=== PATIENT | female | born 1990 | race Caucasian/White ===

== ENCOUNTER → 2017-02-21 | Outpatient (CLI) | payer OTHER ==
--- NOTE | 2017-02-21 15:39 | US ---
EXAMINATION TYPE: US OB <= 14 wk fetus DATE OF EXAM: 02/21/2017 COMPARISON: NONE CLINICAL HISTORY: Confirm Dates Z36. EXAM PERFORMED: Transabdominal (TA) EXAM MEASUREMENTS: GESTATIONAL AGE / DATING Physician Established: not established Dates by LMP: (12 weeks/2 days) EDC: 09/03/2017 First Scan is today: Dates by Current Scan for: (11 weeks/6 days) EDC: 09/06/2017 MATERNAL ANATOMY Uterus: 11.9 x 10.4 x 6.1cm Right Ovary: 1.9 x 1.8 x 1.2cm Left Ovary: 2.8 x 1.9 x 1.9cm Post CDS / Adnexa: wnl Presence of free fluid: no Presence of corpus luteal cyst: in left ovary = 1.1 x 0.9 x 1.0cm Presence of subchorionic bleed: no GESTATION / SURVEY CRL: 5.2cm (11 weeks/6 days) Yolk Sac (normal less than 6mm): 0.4cm Heart Rate: 168 bpm Rhythm: Normal IUP: Viable IUP Nuchal Translucency 10-14wks (normal less than 3mm):1.2mm Date of LMP: 11/27/2016 Beta HcG (if available): NA Single live intrauterine gestation is seen as gestational sac, yolk sac, and pole are identifie d. No free fluid is seen in pelvic cul-de-sac. Both ovaries are seen. Within left ovary there is 1.1 cm peripheral hypoechoic hypervascular lesion f elt to reflect corpus luteal cyst. No concerning extraovarian adnexal mass are seen bilaterally. IMPRESSION: Single live intrauterine gestation is present, mean crown-rump length is 5.2 cm corresponding to 11 w eeks 6 day old fetus.
[2017-02-21 15:42] LABS: CH 30.4; CHCM 35.7; HCT 37.5 % (34.0-46.0); HDW 2.58; HGB 13.4 gm/dL (11.4-16.0); MCH 30.5 pg (25.0-35.0); MCHC 35.7 g/dL (31.0-37.0); MCV 85.5 fL (80.0-100.0); Mean Platelet Volume 7.3; RBC 4.38 m/uL (3.80-5.40); RDW 12.4 % (11.5-15.5); WBC 10.4 k/uL (3.8-10.6)
[2017-02-21 15:52] LABS: Glucose 55 mg/dL (74-99); Non-African American GFR(MDRD) >60 (>60 ml/min/1.73 sqM)
[2017-02-21 16:24] LABS: Hepatitis B Surface Ag Index 0.05
[2017-02-21 19:43] LABS: Treponemal Ab Non-Reactive (Non-Reactive)
== END | disposition home or self-care (01) ==
LOC: RADUSWWP 14:34
PROVIDERS: ATTEND Obstetrics & Gynecology
DX: Z36 Encounter for antenatal screening of mother (principal); O26.811 Pregnancy related exhaustion and fatigue, first trimester; Z3A.11 11 weeks gestation of pregnancy
CPT/HCPCS: 76801; 82565; 82947; 85027; 86762; 86780; 86850; 86900; 86901; 87340; 87390

== ENCOUNTER 2017-04-08 08:32 | Emergency (ER) | payer OTHER ==
[2017-04-08 08:45] VITALS: BP 114/78; PULSE 111; RESP 20; TEMP 98.5
--- NOTE | 2017-04-08 08:59 | ED ---
General Adult HPI - General Chief complaint: Abdominal Pain Stated complaint: Right side & back pain (19 weeks preg) Time Seen by Provider: 04/08/17 08:48 Source: patient, RN notes reviewed, old records reviewed Mode of arrival: ambulatory Limitations: no limitations - History of Present Illness Initial comments: Patient is a 27 year old female who presents to the ER today with a chief complaint of right sided flank pain that comes and goes over the last day. Patient states that at this time is currently not having any pain or symptoms. She states it has been sharp at times. She denies any other symptoms. Denies vaginal bleeding or discharge. States that she has had care. Patient denies any recent fever, chills, shortness of breath, chest pain, nausea or vomiting, numbness or tingling, dysuria or hematuria, constipation or diarrhea, headaches or visual changes, or any other complaints. - Related Data Previous Rx's Medication Instructions Recorded Nitrofurantoin Monohyd/M-Cryst 100 mg PO Q12HR #14 cap 04/08/17 [Macrobid] Allergies Allergy/AdvReac Type Severity Reaction Status Date / Time amoxicillin AdvReac Rash/Hives Verified 04/08/17 08:38 Review of Systems ROS Statement: Those systems with pertinent positive or pertinent negative responses have been documented in the HPI. ROS Other: All systems not noted in ROS Statement are negative. Past Medical History Past Medical History: No Reported History History of Any Multi-Drug Resistant Organisms: None Reported Past Surgical History: No Surgical Hx Reported Past Psychological History: No Psychological Hx Reported Smoking Status: Never smoker Past Alcohol Use History: None Reported Past Drug Use History: None Reported General Exam Limitations: no limitations General appearance: alert, in no apparent distress Head exam: Present: atraumatic, normocephalic, normal inspection Eye exam: Present: normal appearance, PERRL, EOMI. Absent: scleral icterus, conjunctival injection, periorbital swelling ENT exam: Present: normal exam, mucous membranes moist Neck exam: Present: normal inspection. Absent: tenderness, meningismus, lymphadenopathy Respiratory exam: Present: normal lung sounds bilaterally. Absent: respiratory distress, wheezes, rales, rhonchi, stridor Cardiovascular Exam: Present: regular rate, normal rhythm, normal heart sounds. Absent: systolic murmur, diastolic murmur, rubs, gallop, clicks GI/Abdominal exam: Present: soft, normal bowel sounds. Absent: distended, tenderness, guarding, rebound, rigid Extremities exam: Present: normal inspection, full ROM, normal capillary refill. Absent: tenderness, pedal edema, joint swelling, calf tenderness Back exam: Present: normal inspection Neurological exam: Present: alert, oriented X3, CN II-XII intact Psychiatric exam: Present: normal affect, normal mood Skin exam: Present: warm, dry, intact, normal color. Absent: rash Course Vital Signs 04/08/17 08:39 Temperature 98.5 F Pulse Rate 111 H Respiratory 20 Rate Blood Pressure 114/78 O2 Sat by Pulse 100 Oximetry Medical Decision Making - Medical Decision Making Patient reexamined at this time shows no signs of distress. Denies any pain or symptoms at this time here the emergency room. Abdomen soft nontender. heart tones are in the 150s. Patient's labs reviewed shows positive nitrate. Patient will be started on antibiotics cover for infection. Advised return if there is any increase or worsen symptoms or any fever. Advised follow-up with the AEROBICS TEACHER over the next 2 days. Advised return for any other concerns. - Lab Data Lab Results 04/08/17 Range/Units 08:54 Urine Color Light Yellow Urine Appearance Clear (Clear) Urine pH 7.0 (5.0-8.0) Ur Specific [place] 1.010 (1.001-1.035) Urine Protein Negative (Negative) Urine Glucose (UA) Negative (Negative) Urine Ketones Negative (Negative) Urine Blood Negative (Negative) Urine Nitrite Positive H (Negative) Urine Bilirubin Negative (Negative) Urine Urobilinogen <2.0 (<2.0) mg/dL Ur Leukocyte Esterase Negative (Negative) Urine WBC 3 (0-5) /hpf Ur Squamous Epith Cells 4 (0-4) /hpf Urine Bacteria Occasional H (None) /hpf Urine Mucus Rare H (None) /hpf Disposition Clinical Impression: UTI (urinary tract infection) Disposition: HOME SELF-CARE Condition: Good Instructions: Urinary Tract Infection in Women (ED) Additional Instructions: Please use medication as discussed. Please follow-up with AEROBICS TEACHER/family doctor in the next 2 days of symptoms have not improved. Please return to emergency room if the symptoms increase or worsen or for any other concerns. Prescriptions: Nitrofurantoin Monohyd/M-Cryst [Macrobid] 100 mg PO Q12HR #14 cap Referrals: Paz Fabian DO [Primary Care Provider] - 1-2 days Time of Disposition: 09:35
[2017-04-08 09:29] LABS: Appearance,Urine Clear (Clear); Bacteria,Urine Occasional /hpf; Bilirubin,Urine Negative (Negative); Glucose,Urine (UA) Negative (Negative); Ketones,Urine Negative (Negative); Leukocyte Esterase,Urine Negative (Negative); Mucus,Urine Rare /hpf; Nitrite,Urine Positive (Negative); Particle Count 25030; Protein,Urine Negative (Negative); Squamous Epithelial Cell,Urine 4 /hpf (0-4); UA Billing (MACRO vs. MICRO) MICRO; Urobilinogen,Urine <2.0 mg/dL (<2.0); WBC,Urine 3 /hpf (0-5)
== END 2017-04-08 09:38 | disposition home or self-care (01) ==
LOC: EC 08:32
DX: O23.42 Unspecified infection of urinary tract in pregnancy, second trimester (principal); Z88.0 Allergy status to penicillin; Z3A.19 19 weeks gestation of pregnancy
CPT/HCPCS: 81001; 87077; 87086; 87186; 99284

== ENCOUNTER 2017-09-03 10:17 | Inpatient (IN) | payer OTHER ==
[2017-09-04] MEDS ORDERED: METHYLERGONOVINE 0.2 MG/ML 1 ML AMP IM PRN (06:08)
[2017-09-04] MEDS ORDERED: LIDOCAINE 1% (PF) 10 MG/ML (30 ML SDV) SQ PRN (06:08)
[2017-09-04] MEDS ORDERED: OXYTOCIN 20 UNITS/1000 ML NS 1,000 ML IV SCH (06:08)
[2017-09-04] MEDS ORDERED: CARBOPROST TROMETHAMINE 250 MCG/ML 1 ML AMP IM PRN (06:08)
[2017-09-04] MEDS ORDERED: TERBUTALINE 1 MG/ML VIAL SQ PRN (06:08)
[2017-09-04] MEDS ORDERED: OXYTOCIN 10 UNIT/ML 1 ML VIAL IM PRN (06:08)
--- NOTE | 2017-09-04 06:15 | P.HPOB ---
History of Present Illness H&P Date: 09/04/17 Chief Complaint: Patient is presenting for requested induction of labor. This patient is a pleasant 27-year-old 1 para 0 female estimated date of confinement 09/03/2017 estimated gestational age 40 and one sevenths weeks who presents to labor and delivery for requested induction of labor. care has been uncomplicated. Patient has gone over her due date and at this time requests induction of labor. Review of Systems Gastrointestinal: Reports heartburn Genitourinary: Reports Menstruation: Reports amenorrhea Past Medical History Past Medical History: No Reported History History of Any Multi-Drug Resistant Organisms: None Reported Past Surgical History: No Surgical Hx Reported Past Anesthesia/Blood Transfusion Reactions: No Reported Reaction Past Psychological History: No Psychological Hx Reported Smoking Status: Never smoker Past Alcohol Use History: None Reported Past Drug Use History: None Reported Medications and Allergies Home Medications Medication Instructions Recorded Confirmed Type No Known Home Medications [No 09/04/17 09/04/17 History Known Home Medications] Allergies Allergy/AdvReac Type Severity Reaction Status Date / Time amoxicillin AdvReac Rash/Hives Verified 09/04/17 06:08 Exam - Vital Signs Vital signs: Intake and Output 09/03/17 09/03/17 09/04/17 14:59 22:59 06:59 Other: Weight 70.307 kg Patient Weight 09/04/17 06:59 Weight 70.307 kg - OBG Physical Exam Abdomen: bowel sounds normal, no diffuse tenderness, no bruit present, no guarding noted, no hepatomegaly, no splenomegaly, no mass Vulva: both: normal Vagina: normal moisture, no discharge Cervix: no lesion (Same in the office showed her cervix to be 2 cm dilated and soft.), no discharge Uterus: enlarged (Fundal height is 39 cm.) Results blood work shows she is be positive, rubella immune, RPR nonreactive, hepatitis B negative, HIV nonreactive, ultrasounds have been normal, group B strep was negative. Patient's Glucola was 132 with a normal three-hour gtt. Assessment and Plan (1) Third trimester Narrative/Plan: This is a pleasant 27-year-old 1 para 0 female 40 and one sevenths weeks gestation who is admitted to labor and delivery for requested induction of labor. Plan is induction of labor and anticipate vaginal delivery. Current Visit: Yes Status: Acute Code(s): Z34.93 - ENCNTR FOR SUPRVSN OF NORMAL PREG, UNSP, THIRD TRIMESTER SNOMED Code(s): 16119282 (2) Elective induction of labor planned Current Visit: Yes Status: Acute Code(s): VWB1911 - SNOMED Code(s): 486136891
[2017-09-04] MEDS: LACTATED RINGERS 1,000 ML IV SCH ×3 (06:19→15:36)
[2017-09-04 06:31] LABS: Basophils % (A) 0 %; Eosinophils # (A) 0.2 k/uL (0-0.7); Eosinophils % (A) 2 %; HCT 34.1 % (34.0-46.0); HGB 10.9 gm/dL (11.4-16.0); Lymphocytes # (A) 2.7 k/uL (1.0-4.8); Lymphocytes % (A) 32 %; MCH 26.7 pg (25.0-35.0); MCV 83.5 fL (80.0-100.0); Mean Platelet Volume 11.1; Monocytes # (A) 0.5 k/uL (0-1.0); Monocytes % (A) 5 %; Neutrophils # (A) 4.7 k/uL (1.3-7.7); Neutrophils % (A) 56 %; Platelet Count 199 k/uL (150-450); RBC 4.08 m/uL (3.80-5.40); RDW 12.8 % (11.5-15.5); WBC 8.4 k/uL (3.8-10.6)
[2017-09-04 06:57] LABS: Large Platelets Present
[2017-09-04 06:58] LABS: Polychromasia Present
[2017-09-04 07:01] LABS: Anisocytosis (M) Present
[2017-09-04] MEDS ORDERED: BUPIVACAINE (PF) 0.25% 30 ML VIAL ONE (15:05)
[2017-09-04] MEDS ORDERED: SODIUM CHLORIDE 0.9% 100 ML BAG ONE (15:05)
[2017-09-04] MEDS ORDERED: fentaNYL (PF) 50 MCG/ML 5 ML AMP ONE (15:05)
[2017-09-04] MEDS ORDERED: BUPIVACAINE (PF) 0.25% 25 ML, fentaNYL (PF) 200 MCG in SODIUM CHLORIDE 0.9% 71 ML EPIDURAL ONE (15:43)
[2017-09-04] MEDS: OXYTOCIN 20 UNITS/1000 ML NS 1,000 ML IV SCH ×2 (19:43→21:10)
[2017-09-04] MEDS ORDERED: WITCH HAZEL 1 EACH MED..PAD TOPICAL PRN (20:02)
[2017-09-04] MEDS ORDERED: diphenhydrAMINE 50 MG/ML 1 ML VIAL IVP PRN (20:02)
[2017-09-04] MEDS ORDERED: ACETAMINOPHEN TAB 325 MG TAB PO PRN (20:02)
[2017-09-04] MEDS ORDERED: HYDROCORTISONE 2.5% RECTAL CREAM 30 GM TUBE RECTAL PRN (20:02)
[2017-09-04] MEDS ORDERED: LANOLIN CREAM 5 GM TUBE TOPICAL PRN (20:02)
[2017-09-04] MEDS ORDERED: SIMETHICONE 80 MG CHEWABLE PO PRN (20:02)
[2017-09-04] MEDS ORDERED: BENZOCAINE/MENTHOL SPRAY 1 GM/SPRAY AEROSOL TOPICAL PRN (20:02)
[2017-09-04] MEDS ORDERED: BISACODYL 10 MG SUPP RECTAL PRN (20:02)
[2017-09-04] MEDS ORDERED: ZOLPIDEM 5 MG TAB PO PRN (20:02)
[2017-09-04] MEDS ORDERED: diphenhydrAMINE 25 MG CAP PO PRN (20:02)
--- NOTE | 2017-09-04 20:08 | P.PROBDLV ---
Vaginal Delivery Note - . Vaginal Delivery Note: Normal vaginal delivery viable male infant Apgars are 9 and 9 delivery time is 1939 hrs. Please see dictated H&P for intimate details of this patient's admission. Brief summary is a pleasant 27-year-old 1 para 0 female 40 and one sevenths weeks gestation admitted this morning for elective induction of labor. On admission patient is 3 cm dilated she has artificial rupture membranes for clear fluid. Labor is induced with Pitocin per protocol. Patient does progress throughout the day and approximately 5-6 cm gets an epidural for pain control. Patient then goes to complete. Patient pushes for approximately 2 hours pushes the head to the perineum. After 2 hours pushing patient's effort is good but she is exhausted at this time a midline episiotomy is made. This facilitates delivery of the 's head over the perineum. Mouth and nares are bulb suctioned. There is no evidence of a nuchal cord. This time we have gentle downward traction we deliver the anterior shoulder and posterior shoulder and rest this 's body. This is a vigorous viable male Apgars are 9 and 9 delivery time is 1939 hrs. After delivery of the the umbilical cord is doubly clamped and cut appears to be trivascular. Inspection of the perineum shows a second-degree laceration. There is some avulsion of the vagina but this is repaired with 3-0 Vicryl. The rest of the laceration is repaired with 3-0 Vicryl in the usual fashion excellent reapproximation is noted. All counts are correct 3. There are no complications. Infant and mother stable delivery room.
[2017-09-04] MEDS: IBUPROFEN 600 MG TAB PO PRN (20:12)
--- NOTE | 2017-09-05 06:20 | P.PNOBGVD ---
Subjective - Subjective Patient reports: Reports appetite normal, Reports voiding normally, Reports pain well controlled, Reports ambulating normally [place]: doing well Objective - Latest Vital Signs Latest vital signs: Vital Signs Temp Pulse Resp BP 09/05/17 04:00 98.4 F 86 14 97/62 09/05/17 00:55 98.4 F 69 16 118/69 09/04/17 21:56 99.3 F 85 16 117/68 09/04/17 21:26 84 16 124/76 09/04/17 20:56 80 16 127/75 09/04/17 20:41 88 18 121/86 09/04/17 20:26 96 16 123/80 09/04/17 20:11 95 16 122/79 09/04/17 19:56 98.3 F 84 16 124/74 Intake and Output 09/04/17 09/04/17 09/05/17 14:59 22:59 06:59 Intake Total 1000 1174 Balance 1000 1174 Intake: IV 1000 1000 Lactated Ringers 1,000 ml 1000 @ 125 mls/hr IV .Q8H MANNY Rx#:[id number] Oxytocin 20 Units/1000 ml 1000 Ns 1,000 ml @ 1 MILLIUNIT/MIN 3 mls/hr IV .Q24H MANNY Rx#:[id number] Intake, IV Titration 174 Amount Oxytocin 20 Units/1000 ml 174 Ns 1,000 ml @ Per Protocol IV .Q0M MANNY Rx#: [id number] Other: # Voids 1 1 - Exam Lungs: bilateral: normal Chest: Normal S1, Normal S2 Extremities: Present: normal Abdomen: Present: normal appearance, soft Uterus: Present: normal, firm - Labs Labs: Abnormal Lab Results - Last 24 Hours (Table) 09/04/17 Range/Units 06:10 Hgb 10.9 L (11.4-16.0) gm/dL Assessment and Plan Assessment: Post day #1. Patient is resting without complaints. Vital signs are stable and she is afebrile. Uterus is firm nontender she's having normal lochia. My impression this is a normal course. Plan is to continue routine care discharge home tomorrow. (1) Third trimester Current Visit: Yes Status: Acute Code(s): Z34.93 - ENCNTR FOR SUPRVSN OF NORMAL PREG, UNSP, THIRD TRIMESTER SNOMED Code(s): 41896485 (2) Elective induction of labor planned Current Visit: Yes Status: Acute Code(s): SVH3065 - SNOMED Code(s): 671451677
[2017-09-05] MEDS: SENNOSIDES-DOCUSATE SODIUM 1 EACH TAB PO SCH ×2 (09:38→19:45)
[2017-09-05] MEDS ORDERED: DIPH,PERTUS(ACELL)TETVAC-LF 0.5 ML VIAL IM ONE (13:39)
[2017-09-05] MEDS: IBUPROFEN 600 MG TAB PO PRN (15:53)
[2017-09-06 00:32] VITALS: RESP 16
--- NOTE | 2017-09-06 06:18 | P.PNOBGVD ---
Subjective - Subjective Patient reports: Reports appetite normal, Reports voiding normally, Reports pain well controlled, Reports ambulating normally : doing well Objective - Latest Vital Signs Latest vital signs: Vital Signs Temp Pulse Resp BP Pulse Ox 09/06/17 00:00 97.8 F 86 16 113/75 09/05/17 15:30 98.9 F 102 H 18 124/78 97 09/05/17 12:00 98.4 F 98 18 127/80 98 09/05/17 08:00 97.7 F 91 18 118/75 97 - Exam Lungs: bilateral: normal Chest: Normal S1, Normal S2 Extremities: Present: normal Abdomen: Present: normal appearance, soft Uterus: Present: normal, firm Assessment and Plan Assessment: day #2. Patient is resting without complaints and wishes to go home. Vital signs are stable she is afebrile. Uterus is firm nontender she's having normal lochia. My impression that this is a normal course. Plan is to continue routine care discharge home later today. (1) Third trimester Current Visit: Yes Status: Acute Code(s): Z34.93 - ENCNTR FOR SUPRVSN OF NORMAL PREG, UNSP, THIRD TRIMESTER SNOMED Code(s): 42318514 (2) Elective induction of labor planned Current Visit: Yes Status: Acute Code(s): IUA8700 - SNOMED Code(s): 895130745
--- NOTE | 2017-09-06 06:23 | P.DS ---
Providers Date of admission: 09/04/17 05:57 Expected date of discharge: 09/06/17 Attending physician: Kash Trejo Primary care physician: Stated None - Discharge Diagnosis(es) (1) Third trimester Current Visit: Yes Status: Acute (2) Elective induction of labor planned Current Visit: Yes Status: Acute Hospital Course: Please see dictated H&P for intimate details of this patient's admission. Brief summary is a pleasant 27-year-old 1 para 0 female 40 and one sevenths weeks gestation who is admitted to labor and delivery for elective induction of labor. Patient is admitted has uncomplicated induction of labor was on have a vaginal delivery viable male infant. Please see dictated delivery note. hemorrhage 2 she felt be stable for discharge home follow up with me in 6 weeks. Procedures: Normal vaginal delivery. Patient Condition at Discharge: Good Plan - Discharge Summary New Discharge Prescriptions: New Ibuprofen [Motrin] 600 mg PO Q6HR PRN #40 tab PRN Reason: Mild Pain Or Fever >= 100.5 Discharge Medication List Ibuprofen [Motrin] 600 mg PO Q6HR PRN #40 tab 09/06/17 [Rx] Follow up Appointment(s)/Referral(s): Kash Trejo MD [STAFF PHYSICIAN] - 10/15/17 10:15 am Patient Instructions/Handouts: Vaginal Delivery (DC) Activity/Diet/Wound Care/Special Instructions: No intercourse or anything per vagina for 6 weeks. Please call if any fever, chills, excessive vaginal bleeding, and/or abdominal pain. Discharge Disposition: HOME SELF-CARE
[2017-09-06] MEDS: SENNOSIDES-DOCUSATE SODIUM 1 EACH TAB PO SCH (07:45)
[2017-09-06 09:34] VITALS: BP 125/68; TEMP 98.2
[2017-09-06 10:30] VITALS: PULSE 115
== END 2017-09-06 10:40 | disposition home or self-care (01) | DRG 775 ==
LOC: 4FBP 09-04 05:57
PROVIDERS: ADMIT Obstetrics & Gynecology; ATTEND Obstetrics & Gynecology
PROC: 10E0XZZ Delivery of Products of Conception, External Approach (ICD-10-PCS; principal; 2017-09-04)
PROC: 0KQM0ZZ Repair Perineum Muscle, Open Approach (ICD-10-PCS; 2017-09-04)
DX: O70.1 Second degree perineal laceration during delivery (principal); Z37.0 Single live birth; Z3A.40 40 weeks gestation of pregnancy
CPT/HCPCS: 85025; 88307; 90715

== ENCOUNTER → 2019-03-10 | Outpatient (CLI) | payer OTHER ==
--- NOTE | 2019-03-11 08:54 | US ---
EXAMINATION TYPE: Transabdominal DATE OF EXAM: 03/10/2019 4:38 PM COMPARISON: NONE CLINICAL HISTORY: Z36 Confirm dates. EXAM PERFORMED: Transabdominal (TA) EXAM MEASUREMENTS: GESTATIONAL AGE / DATING Physician Established: Not yet established Dates by LMP: LMP unknown Dates by First Scan: No previous this is first scan Dates by Current Scan for: (11 weeks/5 days) EDC: 09/24/19 MATERNAL ANATOMY Uterus: 11.1 x 6.0 x 9.8cm Right Ovary: 3.4 x 2.3 x 1.3cm Left Ovary: 2.3 x 1.5 x 2.6cm Post CDS / Adnexa: wnl Presence of free fluid: no Presence of subchorionic bleed: no GESTATION / SURVEY CRL: 4.9 (11 weeks/1 days) Yolk Sac (normal less than 6mm): not visualized Heart Rate: 174 bpm Rhythm: Normal IUP: Live IUP Date of LMP: unknown IMPRESSION: Single live intrauterine with a calculated sonographic age of 11 weeks and 5 days and estim ated date of delivery of 09/24/2019.
== END | disposition home or self-care (01) ==
LOC: RADUSWWP 16:20
PROVIDERS: ATTEND Obstetrics & Gynecology
DX: Z36.9 Encounter for antenatal screening, unspecified (principal)
CPT/HCPCS: 76801

== ENCOUNTER → 2019-06-13 | Outpatient (CLI) | payer BC, OTHER ==
[2019-06-13 13:59] LABS: HCT 33.7 % (34.0-46.0); HGB 11.7 gm/dL (11.4-16.0); MCHC 34.8 g/dL (31.0-37.0); MCV 92.1 fL (80.0-100.0); Mean Platelet Volume 7.3; Platelet Count 258 k/uL (150-450); RBC 3.67 m/uL (3.80-5.40); RDW 12.7 % (11.5-15.5); WBC 11.9 k/uL (3.8-10.6)
== END ==
LOC: LABWHC1 12:36
PROVIDERS: ATTEND Obstetrics & Gynecology
DX: Z34.82 Encounter for supervision of other normal pregnancy, second trimester (principal); Z3A.00 Weeks of gestation of pregnancy not specified
CPT/HCPCS: 36415; 82950; 85027

== ENCOUNTER 2019-09-22 06:05 | Inpatient (IN) | payer BC, OTHER ==
[2019-09-22] MEDS ORDERED: CARBOPROST TROMETHAMINE 250 MCG/ML 1 ML AMP IM PRN (06:25)
[2019-09-22] MEDS ORDERED: OXYTOCIN 10 UNIT/ML 1 ML VIAL IM PRN (06:25)
[2019-09-22] MEDS ORDERED: TERBUTALINE 1 MG/ML VIAL SQ PRN (06:25)
[2019-09-22] MEDS ORDERED: METHYLERGONOVINE 0.2 MG/ML 1 ML AMP IM PRN (06:25)
[2019-09-22] MEDS ORDERED: LIDOCAINE 0.5% (PF) 5 MG/ML (50 ML SDV) SQ PRN (06:25)
--- NOTE | 2019-09-22 06:25 | P.HPOB ---
History of Present Illness H&P Date: 09/22/19 Chief Complaint: Requested induction of labor This patient is a pleasant 29-year-old 2 para 1 female estimated date of confinement 09/25/2019 estimated gestational age 39-4/7 weeks who presents to labor and delivery for requested induction of labor. Patient's care has been uncomplicated. I was following her for growth, however serial ultrasounds shows it is just small for gestational age. Patient is now requesting induction of labor. Review of Systems Genitourinary: Reports Menstruation: Reports amenorrhea Past Medical History Past Medical History: No Reported History History of Any Multi-Drug Resistant Organisms: None Reported Past Surgical History: No Surgical Hx Reported Past Anesthesia/Blood Transfusion Reactions: No Reported Reaction Past Psychological History: No Psychological Hx Reported Smoking Status: Never smoker Past Alcohol Use History: None Reported Past Drug Use History: None Reported - Past Family History Mother Family Medical History: No Reported History Medications and Allergies Home Medications Medication Instructions Recorded Confirmed Type Ibuprofen [Motrin] 600 mg PO Q6HR PRN #40 tab 09/06/17 Rx Allergies Allergy/AdvReac Type Severity Reaction Status Date / Time amoxicillin AdvReac Rash/Hives Verified 09/04/17 06:08 Exam - OBG Physical Exam Abdomen: bowel sounds normal, no diffuse tenderness, no bruit present, no guarding noted, no hepatomegaly, no splenomegaly, no mass Vulva: both: normal Vagina: normal moisture, no discharge Cervix: no lesion (Cervix most recently in the office was 2 cm dilated.), no discharge Uterus: enlarged (Fundal height 37 cm) Results blood work shows she is B+, rubella immune, RPR is nonreactive, hepatitis B was negative, HIV was nonreactive, ultrasounds have been normal, group B strep was negative. Glucola was 158 with a normal three-hour gtt. Most recent ultrasound showed estimated weight of 6 lbs. 2 oz. Assessment and Plan Assessment: This is a pleasant 29-year-old 2 para 1 female 39-4/7 weeks gestation who presents to labor and delivery for requested induction of labor. Plan is induction of labor and anticipate vaginal delivery. (1) 39 weeks gestation of Current Visit: Yes Status: Acute Code(s): Z3A.39 - 39 WEEKS GESTATION OF SNOMED Code(s): 85304026 (2) Elective induction of labor planned Current Visit: No Status: Acute Code(s): ZTB3767 - SNOMED Code(s): 445244583
[2019-09-22] MEDS ORDERED: OXYTOCIN 30 UNITS/500 ML NS 30 UNIT in SALINE 1 500ML.BAG IV SCH (06:30)
[2019-09-22 06:34] LABS: Basophils % (A) 1 %; Eosinophils # (A) 0.2 k/uL (0-0.7); Eosinophils % (A) 3 %; HCT 30.6 % (34.0-46.0); Lymphocytes # (A) 2.2 k/uL (1.0-4.8); Lymphocytes % (A) 33 %; MCH 28.1 pg (25.0-35.0); MCHC 32.8 g/dL (31.0-37.0); MCV 85.6 fL (80.0-100.0); Monocytes # (A) 0.4 k/uL (0-1.0); Monocytes % (A) 5 %; Neutrophils # (A) 3.8 k/uL (1.3-7.7); Neutrophils % (A) 56 %; Platelet Count 183 k/uL (150-450); RBC 3.57 m/uL (3.80-5.40); RDW 12.5 % (11.5-15.5); WBC 6.8 k/uL (3.8-10.6)
[2019-09-22] MEDS: LACTATED RINGERS 1,000 ML IV SCH ×2 (06:39→12:56)
[2019-09-22 07:53] LABS: Large Platelets Present
[2019-09-22] MEDS ORDERED: BUTORPHANOL 1 MG/ML 1 ML VIAL IV PRN (13:30)
[2019-09-22] MEDS ORDERED: WITCH HAZEL 1 EACH MED..PAD TOPICAL PRN (14:20)
[2019-09-22] MEDS ORDERED: ZOLPIDEM 5 MG TAB PO PRN (14:20)
[2019-09-22] MEDS ORDERED: diphenhydrAMINE 50 MG/ML 1 ML VIAL IVP PRN (14:20)
[2019-09-22] MEDS ORDERED: IBUPROFEN 600 MG TAB PO PRN (14:20)
[2019-09-22] MEDS ORDERED: diphenhydrAMINE 25 MG CAP PO PRN (14:20)
[2019-09-22] MEDS ORDERED: LANOLIN CREAM 5 GM TUBE TOPICAL PRN (14:20)
[2019-09-22] MEDS ORDERED: BISACODYL 10 MG SUPP RECTAL PRN (14:20)
[2019-09-22] MEDS ORDERED: ACETAMINOPHEN TAB 325 MG TAB PO PRN (14:20)
[2019-09-22] MEDS ORDERED: SIMETHICONE 80 MG CHEWABLE PO PRN (14:20)
[2019-09-22] MEDS ORDERED: BENZOCAINE/MENTHOL SPRAY 1 GM/SPRAY AEROSOL TOPICAL PRN (14:20)
[2019-09-22] MEDS ORDERED: OXYTOCIN 20 UNITS/1000 ML NS 1,000 ML IV SCH (14:20)
[2019-09-22] MEDS ORDERED: HYDROCORTISONE 2.5% RECTAL CREAM 30 GM TUBE RECTAL PRN (14:20)
--- NOTE | 2019-09-22 19:16 | P.PROBDLV ---
Vaginal Delivery Note - . Vaginal Delivery Note: Normal vaginal delivery viable male Apgars 9 and 10 delivery time is 1349 hrs. Please see dictated H&P for intimate details of this patient's admission. Brief summary this is a pleasant 29-year-old 2 para 1 female estimated gestational age 39-4/7 weeks who presents to labor and delivery for requested induction of labor. On admission patient is 2-3 cm does artificial rupture membranes for clear fluid. Patient's labor is induced with Pitocin per pro tocol. She progresses rapidly received one dose of Stadol for pain control. Patient gets to complete pushes the head to the perineum. The posterior perineum is supported we have controlled delivery of 's head over the intact perineum. Mouth and nares are bulb suctioned. There is a nuchal cord which is reduced. With gentle downward traction we then have deliver the anterior and posterior shoulder and rest this infant's body. This is a vigorous viable male Apgars are 9 and 10 delivery time is 1349 hrs. After delivery of the the cord is allowed to quit pulsating is then doubly clamped and cut. The placenta is then spontaneously delivered intact. Inspection of the perineum shows a left vaginal laceration and a first-degree posterior laceration both of which are repaired with 3-0 Vicryl in the usual fashion. Excellent reapproximation is noted. Assessment blood loss is 200 mL. There are no complications. All counts are correct 3. Infant and mother are stable delivery room.
[2019-09-22] MEDS: SENNOSIDES-DOCUSATE SODIUM 1 EACH TAB PO SCH ×2 (19:50→20:17)
[2019-09-22 20:16] VITALS: RESP 18
--- NOTE | 2019-09-23 06:54 | P.PNOBGVD ---
Subjective - Subjective Patient reports: Reports appetite normal, Reports voiding normally, Reports pain well controlled, Reports ambulating normally : doing well Objective - Latest Vital Signs Latest vital signs: Vital Signs Temp Pulse Resp BP Pulse Ox 09/22/19 23:22 98.3 F 84 18 119/70 99 09/22/19 20:00 98.1 F 70 18 128/79 99 09/22/19 16:22 97.6 F 89 16 118/76 09/22/19 16:00 97.9 F 103 H 16 153/69 09/22/19 15:52 97.9 F 103 H 16 153/69 09/22/19 15:22 85 18 130/82 09/22/19 14:59 93 18 120/83 09/22/19 14:46 86 16 125/86 09/22/19 14:33 87 16 129/80 09/22/19 14:22 93 16 122/76 Intake and Output 09/22/19 09/22/19 09/23/19 14:59 22:59 06:59 Output Total 200 900 Balance -200 -900 Output: Urine 500 Estimated Blood Loss 200 400 Other: # Voids 1 2 - Exam Lungs: bilateral: normal Chest: Normal S1, Normal S2 Extremities: Present: normal Abdomen: Present: normal appearance, soft Uterus: Present: normal, firm - Labs Labs: Abnormal Lab Results - Last 24 Hours (Table) 09/22/19 Range/Units 06:25 RBC 3.57 L (3.80-5.40) m/uL Hgb 10.0 L (11.4-16.0) gm/dL Hct 30.6 L (34.0-46.0) % Assessment and Plan Assessment: day #1. Patient is resting without complaints and wishes to go home. Vital signs are stable she is afebrile. Uterus is firm nontender she's having normal lochia. Plan today is to continue routine care discharge home later today. (1) 39 weeks gestation of Current Visit: Yes Status: Acute Code(s): Z3A.39 - 39 WEEKS GESTATION OF SNOMED Code(s): 42225520 (2) Elective induction of labor planned Current Visit: No Status: Acute Code(s): WMS8911 - SNOMED Code(s): 135655139
--- NOTE | 2019-09-23 07:01 | P.DS ---
Providers Date of admission: 09/22/19 06:05 Expected date of discharge: 09/23/19 Attending physician: Kash Trejo Primary care physician: Stated None - Discharge Diagnosis(es) (1) 39 weeks gestation of Current Visit: Yes Status: Acute (2) Elective induction of labor planned Current Visit: No Status: Acute Hospital Course: Please see dictated H&P for intimate details of this patient's admission. Brief summary is a pleasant 29-year-old 2 para 1 female 39-4/7 weeks gestation admitted to labor and delivery for elective induction of labor. Patient admitted she quickly goes on to have a vaginal delivery viable male . Please see dictated delivery note. day 1 patient's feeling well wishes to go home. Patient's felt be stable for discharge home follow up with me in 6 weeks. Procedures: Induction of labor normal vaginal delivery. Patient Condition at Discharge: Good Plan - Discharge Summary New Discharge Prescriptions: New Ibuprofen [Motrin] 600 mg PO Q6HR PRN #30 tab PRN Reason: Mild Pain Or Fever >= 100.5 Discharge Medication List Ibuprofen [Motrin] 600 mg PO Q6HR PRN #30 tab 09/23/19 [Rx] Follow up Appointment(s)/Referral(s): Kash Trejo MD [STAFF PHYSICIAN] - 11/05/19 11:15 am Patient Instructions/Handouts: Vaginal Delivery (DC) Activity/Diet/Wound Care/Special Instructions: No intercourse or anything per vagina for 6 weeks. Please call if any fever, chills, excessive vaginal bleeding, and/or abdominal pain. Discharge Disposition: HOME SELF-CARE
[2019-09-23] MEDS: SENNOSIDES-DOCUSATE SODIUM 1 EACH TAB PO SCH (07:59)
[2019-09-23 08:06] VITALS: BP 112/80; PULSE 87; TEMP 98.6
== END 2019-09-23 15:20 | disposition home or self-care (01) | DRG 806 ==
LOC: 4FBP 06:05
PROVIDERS: ADMIT Obstetrics & Gynecology; ATTEND Obstetrics & Gynecology
PROC: 3E033VJ Introduction of Other Hormone into Peripheral Vein, Percutaneous Approach (ICD-10-PCS; principal; 2019-09-22)
PROC: 10907ZC Drainage of Amniotic Fluid, Therapeutic from Products of Conception, Via Natural or Artificial Opening (ICD-10-PCS; principal; 2019-09-22)
PROC: 10E0XZZ Delivery of Products of Conception, External Approach (ICD-10-PCS; principal; 2019-09-22)
PROC: 0HQ9XZZ Repair Perineum Skin, External Approach (ICD-10-PCS; principal; 2019-09-22)
DX: O69.81X0 Labor and delivery complicated by cord around neck, without compression, not applicable or unspecified (principal); O71.4 Obstetric high vaginal laceration alone; Z37.0 Single live birth; Z3A.39 39 weeks gestation of pregnancy; Z88.0 Allergy status to penicillin
CPT/HCPCS: 85025; 86850; 86900; 86901

== ENCOUNTER → 2021-02-25 | Outpatient (CLI) | payer OTHER ==
--- NOTE | 2021-03-02 14:32 | US ---
EXAMINATION TYPE: Transabdominal DATE OF EXAM: 02/25/2021 3:06 PM COMPARISON: NONE CLINICAL HISTORY: Z36 CONFIRM DATES. confirm dates EXAM PERFORMED: Transabdominal (TA) EXAM MEASUREMENTS: GESTATIONAL AGE / DATING Physician Established: (11 weeks/2 days) EDC: 09/14/2021 Dates by LMP: 11 (2 weeks/ days) EDC: 09/14/2021 Dates by First Scan: No previous this is first scan Dates by Current Scan for: (10 weeks/6 days) EDC: 09/17/2021 MATERNAL ANATOMY Uterus:10.4 x 7.2 x 9.7 cm Right Ovary: obscured by bowel gas. Left Ovary: 3.7 x 2.6 x 3.4 cm Post CDS / Adnexa: wnl Presence of free fluid: no Presence of corpus luteal cyst: yes Presence of subchorionic bleed: left GESTATION / SURVEY CRL: 3.95 cm (10 weeks/6 days)Yolk Sac (normal less than 6mm): 2 mm Heart Rate: 165 bpm Rhythm: Normal IUP: Viable IUP Beta HcG (if available): Not available at this time IMPRESSION: Single intrauterine gestation estimated at 10 weeks 6 days gestation based on the crown-rump length. Cardiac activity measures 165 beats per minute was observed during the study.
== END | disposition home or self-care (01) ==
LOC: RADUSWWP 15:04
PROVIDERS: ATTEND Obstetrics & Gynecology
DX: Z36.89 Encounter for other specified antenatal screening (principal); Z3A.10 10 weeks gestation of pregnancy; Z88.0 Allergy status to penicillin
CPT/HCPCS: 76801

== ENCOUNTER 2021-09-12 00:25 | Inpatient (IN) | payer OTHER ==
[2021-09-12] MEDS ORDERED: OXYTOCIN 10 UNIT/ML 1 ML VIAL IM PRN (00:40)
[2021-09-12] MEDS ORDERED: LIDOCAINE 1% (PF) 10 MG/ML (30 ML SDV) SQ PRN (00:40)
[2021-09-12] MEDS ORDERED: METHYLERGONOVINE 0.2 MG/ML 1 ML AMP IM PRN (00:40)
[2021-09-12] MEDS ORDERED: CARBOPROST TROMETHAMINE 250 MCG/ML 1 ML AMP IM PRN (00:40)
[2021-09-12] MEDS ORDERED: TERBUTALINE 1 MG/ML VIAL SQ PRN (00:40)
[2021-09-12] MEDS ORDERED: LACTATED RINGERS 1,000 ML IV SCH ×2 (00:45)
[2021-09-12 00:54] LABS: Basophils % (A) 0 %; Eosinophils # (A) 0.1 k/uL (0-0.7); Eosinophils % (A) 1 %; HCT 33.8 % (34.0-46.0); HGB 10.8 gm/dL (11.4-16.0); Lymphocytes # (A) 2.2 k/uL (1.0-4.8); Lymphocytes % (A) 18 %; MCH 27.7 pg (25.0-35.0); MCV 86.7 fL (80.0-100.0); Mean Platelet Volume 8.7; Monocytes # (A) 0.6 k/uL (0-1.0); Monocytes % (A) 5 %; Neutrophils # (A) 9.4 k/uL (1.3-7.7); Neutrophils % (A) 74 %; Platelet Count 234 k/uL (150-450); RDW 13.7 % (11.5-15.5); WBC 12.7 k/uL (3.8-10.6)
--- NOTE | 2021-09-12 01:04 | P.HPOB ---
History of Present Illness H&P Date: 09/12/21 Chief Complaint: Intrauterine at term: Active labor Patient is a 31-year-old at 39 weeks 5 days gestation who arrives in active labor dilated to 8 cm 90% effaced -2 station. Artificial rupture membranes was performed at this time with a category 1 tracing noted. She denies any problems or call patient with the and she is feeling very well at this time contractions are approximately every 3-5 minutes apart. Pertinent labs do include B+ blood type, Rh antibody was negative, rubella was immune, hepatitis C surface antigen/RPR and HIV were all negative as well as groupie strep. All questions are answered for this time and we are anticipating a spontaneous vaginal delivery. Past Medical History Past Medical History: No Reported History History of Any Multi-Drug Resistant Organisms: None Reported Past Surgical History: No Surgical Hx Reported Past Anesthesia/Blood Transfusion Reactions: No Reported Reaction Past Psychological History: No Psychological Hx Reported Smoking Status: Never smoker Past Alcohol Use History: None Reported Past Drug Use History: None Reported - Past Family History Mother Family Medical History: No Reported History Medications and Allergies Home Medications Medication Instructions Recorded Confirmed Type Ibuprofen [Motrin] 600 mg PO Q6HR PRN #30 tab 09/23/19 Rx Allergies Allergy/AdvReac Type Severity Reaction Status Date / Time amoxicillin AdvReac Rash/Hives Verified 09/12/21 00:39 Penicillins AdvReac Rash/Hives Verified 09/12/21 00:39 Exam Osteopathic Statement: *. No significant issues noted on an osteopathic structural exam other than those noted in the History and Physical/Consult. Vital Signs Temp Pulse Resp BP Pulse Ox 09/12/21 00:42 97.2 F L 108 H 18 137/80 97 09/12/21 00:33 97.2 F L 108 H 18 137/80 97 Intake and Output 09/11/21 09/11/21 09/12/21 14:59 22:59 06:59 Other: Weight 70.76 kg - OBG Physical Exam Breast: both: normal (no masses) Abdomen: bowel sounds normal, no diffuse tenderness, no bruit present, no guarding noted, no hepatomegaly, no splenomegaly, no mass Vulva: both: normal Vagina: normal moisture, no discharge Cervix: no lesion, no discharge Uterus: normal size, normal contour Adnexa: both: normal Anus/Rectum: normal perianal skin, no rectal mass, no hemorrhoids, heme negative Results Result Diagrams: 09/12/21 00:42 Abnormal Lab Results - Last 24 Hours (Table) 09/12/21 Range/Units 00:42 WBC 12.7 H (3.8-10.6) k/uL Hgb 10.8 L (11.4-16.0) gm/dL Hct 33.8 L (34.0-46.0) % Neutrophils # 9.4 H (1.3-7.7) k/uL
--- NOTE | 2021-09-12 01:46 | P.PROBDLV ---
Vaginal Delivery Note - . Vaginal Delivery Note: Patient progressed to complete and pushing with spontaneous vaginal delivery of a viable male over an intact perineum. Falling deliver the head from left docked anterior position anterior posterior shoulders were delivered gentle downward upper traction followed by the remainder the baby. Mouth nares were then bulb suctioned and baby was placed on mother's abdomen where the umbilical cord was clamped cut in usual fashion following 30 seconds of pulsation. Nursery personnel was present and assumed care. Ascent was then delivered intact Pitocin was added to the IV. scores weight are pending but both mother and baby currently are stable following delivery. It is noted that the IV came out as she was pushing and I am Pitocin has been administered.
[2021-09-12] MEDS ORDERED: ACETAMINOPHEN TAB 325 MG TAB PO PRN (04:28)
[2021-09-12] MEDS ORDERED: diphenhydrAMINE 25 MG CAP PO PRN (04:28)
[2021-09-12] MEDS ORDERED: diphenhydrAMINE 50 MG CAP PO PRN (04:28)
[2021-09-12] MEDS ORDERED: ZOLPIDEM 5 MG TAB PO PRN (04:28)
[2021-09-12] MEDS ORDERED: SIMETHICONE 80 MG CHEWABLE PO PRN (04:28)
[2021-09-12] MEDS ORDERED: diphenhydrAMINE 50 MG/ML 1 ML VIAL IVP PRN ×2 (04:28)
[2021-09-12] MEDS ORDERED: IBUPROFEN 600 MG TAB PO PRN (04:28)
[2021-09-12] MEDS ORDERED: BENZOCAINE/MENTHOL SPRAY 1 GM/SPRAY AEROSOL TOPICAL PRN (04:28)
[2021-09-12] MEDS ORDERED: LANOLIN CREAM 5 GM TUBE TOPICAL PRN (04:28)
[2021-09-12] MEDS ORDERED: HYDROCORTISONE 2.5% RECTAL CREAM 30 GM TUBE RECTAL PRN (04:28)
[2021-09-12] MEDS: SENNOSIDES-DOCUSATE SODIUM 1 EACH TAB PO SCH ×2 (09:04→19:35)
--- NOTE | 2021-09-13 06:37 | P.PNOBGVD ---
Subjective - Subjective Patient reports: Reports appetite normal, Reports voiding normally, Reports pain well controlled, Reports ambulating normally : doing well Objective - Latest Vital Signs Latest vital signs: Vital Signs Temp Pulse Resp BP Pulse Ox 09/13/21 00:00 97.4 F L 87 16 120/73 95 09/12/21 16:00 98.8 F 96 16 96/62 09/12/21 12:00 97.9 F 105 H 14 96/59 09/12/21 08:00 98.3 F 105 H 14 114/71 Intake and Output 09/12/21 09/12/21 09/13/21 14:59 22:59 06:59 Other: # Voids 2 1 - Exam Lungs: bilateral: normal Chest: Normal S1, Normal S2 Extremities: Present: normal Abdomen: Present: normal appearance, soft Uterus: Present: normal, firm Assessment and Plan Assessment: day #1. Patient is resting without complaints. Vital signs are st able she's afebrile. Uterus is firm nontender. Patient's baby is having some phototherapy however if the baby is able to go home today she would like to be discharged as well. Plan is to continue routine care discharge home later today. (1) Normal vaginal delivery Current Visit: Yes Status: Acute Code(s): O80 - ENCOUNTER FOR FULL-TERM UNCOMPLICATED DELIVERY SNOMED Code(s): 52434349
--- NOTE | 2021-09-13 06:41 | P.DS ---
Providers Date of admission: 09/12/21 00:35 Expected date of discharge: 09/13/21 Attending physician: Kash Trejo Primary care physician: Stated None - Discharge Diagnosis(es) (1) Normal vaginal delivery Current Visit: Yes Status: Acute Hospital Course: Please see dictated H&P and delivery note per Dr. Colón on this patient's admission. In brief summary this is a pleasant 31-year-old 4 para 2 female 39-1/2 weeks gestation admitted to labor and delivery in active labor. Patient quickly goes on to have a vaginal delivery viable male infant. Please see dictated delivery note. day #1 patient's wish to go home felt be stable for discharge home follow up with me in 6 weeks. Procedures: Normal spontaneous vaginal delivery Patient Condition at Discharge: Good Plan - Discharge Summary New Discharge Prescriptions: New Ibuprofen [Motrin] 600 mg PO Q6HR PRN #30 tab PRN Reason: Pain No Action Ibuprofen [Motrin] 600 mg PO Q6HR PRN #30 tab PRN Reason: Mild Pain Or Fever >= 100.5 Discharge Medication List Ibuprofen [Motrin] 600 mg PO Q6HR PRN #30 tab 09/23/19 [Rx] Ibuprofen [Motrin] 600 mg PO Q6HR PRN #30 tab 09/13/21 [Rx] Follow up Appointment(s)/Referral(s): Kash Trejo MD [STAFF PHYSICIAN] - 10/24/21 11:15 am Patient Instructions/Handouts: Vaginal Delivery (DC) Activity/Diet/Wound Care/Special Instructions: No intercourse or anything per vagina for 6 weeks. Please call if any fever, chills, excessive vaginal bleeding, and/or abdominal pain. Discharge Disposition: HOME SELF-CARE
[2021-09-13] MEDS: SENNOSIDES-DOCUSATE SODIUM 1 EACH TAB PO SCH (09:14)
[2021-09-13 16:31] VITALS: BP 103/69; PULSE 99; RESP 16; TEMP 98.2
== END 2021-09-13 18:30 | disposition home or self-care (01) | DRG 807 ==
LOC: FBPOP 00:25 → 4FBP 00:35
PROVIDERS: ADMIT Obstetrics & Gynecology; ATTEND Obstetrics & Gynecology
PROC: 10E0XZZ Delivery of Products of Conception, External Approach (ICD-10-PCS; principal; 2021-09-12)
PROC: 10907ZC Drainage of Amniotic Fluid, Therapeutic from Products of Conception, Via Natural or Artificial Opening (ICD-10-PCS; 2021-09-12)
PROC: 4A0HXCZ Measurement of Products of Conception, Cardiac Rate, External Approach (ICD-10-PCS; 2021-09-12)
DX: O26.893 Other specified pregnancy related conditions, third trimester (principal); Z37.0 Single live birth; Z67.41 Type O blood, Rh negative; Z3A.39 39 weeks gestation of pregnancy; Z88.1 Allergy status to other antibiotic agents; Z88.0 Allergy status to penicillin
CPT/HCPCS: 59025; 85025; 86850; 86900; 86901; 99213

== ENCOUNTER 2024-02-18 00:47 | Inpatient (IN) | payer OTHER ==
[2024-02-18] MEDS ORDERED: TERBUTALINE 1 MG/ML VIAL SQ PRN (01:26)
[2024-02-18] MEDS ORDERED: miSOPROStoL 200 MCG TAB RECTAL PRN (01:26)
[2024-02-18] MEDS ORDERED: OXYTOCIN 10 UNIT/ML 1 ML VIAL IM PRN (01:26)
[2024-02-18] MEDS ORDERED: TRANEXAMIC 1,000 MG/100ML-NACL 1,000 MG in EMPTY BAG 1 BAG IV PRN (01:26)
[2024-02-18] MEDS ORDERED: CARBOPROST TROMETHAMINE 250 MCG/ML 1 ML AMP IM PRN (01:26)
[2024-02-18] MEDS ORDERED: LIDOCAINE 0.5% (PF) 5 MG/ML (50 ML SDV) SQ PRN (01:26)
[2024-02-18] MEDS ORDERED: METHYLERGONOVINE 0.2 MG/ML 1 ML AMP IM PRN (01:26)
[2024-02-18] MEDS ORDERED: miSOPROStoL 200 MCG TAB PO PRN (01:26)
[2024-02-18] MEDS: LACTATED RINGERS 1,000 ML IV SCH (01:44)
[2024-02-18 02:03] LABS: Basophils % (A) 0 %; Eosinophils # (A) 0.2 k/uL (0-0.7); Eosinophils % (A) 2 %; HCT 34.2 % (34.0-46.0); HGB 11.8 gm/dL (11.4-16.0); Lymphocytes % (A) 27 %; MCH 31.5 pg (25.0-35.0); MCHC 34.3 g/dL (31.0-37.0); MCV 91.7 fL (80.0-100.0); Mean Platelet Volume 10.2; Monocytes # (A) 0.5 k/uL (0-1.0); Monocytes % (A) 4 %; Neutrophils # (A) 7.3 k/uL (1.3-7.7); Neutrophils % (A) 65 %; Platelet Count 186 k/uL (150-450); RBC 3.73 m/uL (3.80-5.40); RDW 12.8 % (11.5-15.5); WBC 11.2 k/uL (3.8-10.6)
--- NOTE | 2024-02-18 03:16 | P.HPOB ---
History of Present Illness H&P Date: 02/18/24 Chief Complaint: contractions Ms. Harman is a 33 year old at 40 weeks and 5 days with EDC of 02/13/2024 by 11 week US who presents to L&D with regular, painful contractions and found to be in labor. The has been essentially uncomplicated, although there was a circumvallate placenta noted on anatomy US. The fetus is estimated in the 19% for growth based on a 36 week growth US. Obstetric history: 3 FTVD, no complications, largest baby 8#5oz work-up: blood type B positive, antibody screen negative, rubella immune, VDRL non-reactive, HBsAg negative, HIV negative, HCV Ab non-reactive, gonorrhea negative, chlamydia negative, 1 hour GTT wnl, GBS negative. Past Medical History Past Medical History: No Reported History History of Any Multi-Drug Resistant Organisms: None Reported Past Surgical History: No Surgical Hx Reported Past Anesthesia/Blood Transfusion Reactions: No Reported Reaction Past Psychological History: No Psychological Hx Reported Smoking Status: Never smoker Past Alcohol Use History: None Reported Past Drug Use History: None Reported - Past Family History Mother Family Medical History: No Reported History Medications and Allergies Home Medications Medication Instructions Recorded Confirmed Type Vit No.179/Iron/Folic 1 tab PO DAILY 02/18/24 02/18/24 History [ Tablet] Allergies Allergy/AdvReac Type Severity Reaction Status Date / Time amoxicillin AdvReac Rash/Hives Verified 02/18/24 00:49 Penicillins AdvReac Rash/Hives Verified 02/18/24 00:49 Exam Vital Signs Temp Pulse Resp BP Pulse Ox 02/18/24 01:08 98.1 F 105 H 16 120/77 98 Intake and Output 02/17/24 02/17/24 02/18/24 14:59 22:59 06:59 Other: Weight 68.039 kg Focused physical exam is performed. This is a healthy-appearing in no apparent distress. Breathing is non-labored. Abdomen is gravid and non-tender. Cervical exam is 8 cm, 70 effacement, -2 station. AROM is undertaken with clear fluid noted. Extremities non-tender and non-edematous. heart tones are Category I to II with intermittent variable decelerations and early decelerations. Tocometer is graphing contractions every 2-4 minutes. Results Result Diagrams: 02/18/24 01:39 Abnormal Lab Results - Last 24 Hours (Table) 02/18/24 Range/Units 01:39 WBC 11.2 H (3.8-10.6) k/uL RBC 3.73 L (3.80-5.40) m/uL Assessment and Plan Assessment: 33 year old at 40 weeks and 5 days gestation presenting in labor Plan: Admit, clear liquid diet, expectant management, continuous EFM and tocometer, anticipate vaginal delivery.
[2024-02-18] MEDS: OXYTOCIN 30 UNITS/500 ML NS 30 UNIT in SALINE 1 500ML.BAG IV SCH (04:03)
[2024-02-18] MEDS ORDERED: LANOLIN CREAM 1 GM TUBE TOPICAL PRN (04:15)
[2024-02-18] MEDS ORDERED: IBUPROFEN 600 MG TAB PO PRN (04:15)
[2024-02-18] MEDS ORDERED: diphenhydrAMINE 50 MG CAP PO PRN (04:15)
[2024-02-18] MEDS ORDERED: ACETAMINOPHEN TAB 325 MG TAB PO PRN (04:15)
[2024-02-18] MEDS ORDERED: diphenhydrAMINE 50 MG/ML 1 ML VIAL IVP PRN ×2 (04:15)
[2024-02-18] MEDS ORDERED: ZOLPIDEM 5 MG TAB PO PRN (04:15)
[2024-02-18] MEDS ORDERED: HYDROCORTISONE 2.5% RECTAL CREAM 30 GM TUBE RECTAL PRN (04:15)
[2024-02-18] MEDS ORDERED: SIMETHICONE 80 MG CHEWABLE PO PRN (04:15)
[2024-02-18] MEDS ORDERED: diphenhydrAMINE 25 MG CAP PO PRN (04:15)
--- NOTE | 2024-02-18 04:15 | P.PROBDLV ---
Vaginal Delivery Note - . Vaginal Delivery Note: DATE OF SERVICE: 02/18/2024 PROCEDURE: Normal Vaginal Delivery ATTENDING: Dr. Ya Looney MD ESTIMATED BLOOD LOSS: 200 mL FINDINGS: VMI, Apgars 9/10. Weight 7 pounds and 0 ounces (3185 grams) PROCEDURE: Ms. Harman is a 33 year old at 40 weeks and 5 days presenting to labor and delivery in spontaneous labor. The has been complicated by the finding of a circumvallate placenta on US. For further details, please review the admitting H&P. AROM was undertaken at 303 revealing clear fluid. The patient was completely dilated at 340. The patient pushed effectively with Category I heart tones. She brought the head to a c rown and delivered the head over the next push, followed by the body over an intact perineum. A viable male infant was delivered at 401. The infant was placed on the maternal abdomen and bulb suctioned. The was noted to be spontaneously crying. Cord was clamped and cut after a 60-second delay. The infant was handed off to the pediatric team. Placenta was delivered whole with gentle cord traction at 403. Oxytocin was started to facilitate uterine tone. Uterine fundus was found to be firm and below the umbilicus upon fundal massage. Thorough examination of the cervix, vagina, periurethral area, and perineum revealed no lacerations. The patient is stable and allowed to begin the bonding process.
[2024-02-18] MEDS: BENZOCAINE/MENTHOL SPRAY 1 GM/SPRAY AEROSOL TOPICAL PRN (04:37)
[2024-02-18] MEDS: SENNOSIDES-DOCUSATE SODIUM 1 EACH TAB PO SCH (23:00)
[2024-02-19 00:48] VITALS: RESP 16
[2024-02-19 07:42] LABS: Basophils % (A) 0 %; Eosinophils # (A) 0.2 k/uL (0-0.7); Eosinophils % (A) 3 %; HCT 34.7 % (34.0-46.0); HGB 11.5 gm/dL (11.4-16.0); Lymphocytes # (A) 2.4 k/uL (1.0-4.8); Lymphocytes % (A) 29 %; MCH 31.5 pg (25.0-35.0); MCV 95.3 fL (80.0-100.0); Monocytes # (A) 0.5 k/uL (0-1.0); Monocytes % (A) 5 %; Neutrophils # (A) 4.9 k/uL (1.3-7.7); Neutrophils % (A) 60 %; Platelet Count 184 k/uL (150-450); RBC 3.64 m/uL (3.80-5.40); RDW 12.8 % (11.5-15.5); WBC 8.3 k/uL (3.8-10.6)
--- NOTE | 2024-02-19 08:30 | P.DS ---
Providers Date of admission: 02/18/24 01:03 Expected date of discharge: 02/19/24 Attending physician: Ya Looney MD Primary care physician: Stated None Hospital Course: Ms. Harman is a 33 year old now PPD#1 s/p . The patient is doing well this morning and had no acute events overnight. She has no complaints this morning. She reports minimal lochia, passing flatus, voiding without difficulty, ambulating, and eating/drinking without nausea or vomiting. doing well at bedside, s/p circumcision, breast feeding well. She denies chest pain, shortness of breathing, fevers, or chills overnight. She denies pain or swelling in the legs. restrictions are reviewed with the patient including pelvic rest for 6 weeks. The patient is encouraged to call the office if she experiences any heavy bleeding, foul-smelling discharge, breast complaints, or any if she has any other concerns. She will follow up in the office with in 6 weeks for exam. She plans to use motrin and tylenol OTC. All questions are answered. Assessment: 33 year old now PPD#1 s/p Patient Condition at Discharge: Good Plan - Discharge Summary New Discharge Prescriptions: No Action Vit No.179/Iron/Folic [ Tablet] 1 tab PO DAILY Discharge Medication List Vit No.179/Iron/Folic [ Tablet] 1 tab PO DAILY 02/18/24 [History] Follow up Appointment(s)/Referral(s): Ya Looney MD [STAFF PHYSICIAN] - 03/27/24 1:45 pm Activity/Diet/Wound Care/Special Instructions: Instructions 1. Do not begin any exercise program for 3 weeks. 2. Do not resume sexual relations for 6 weeks or longer if uncomfortable. 3. You may take tub baths or showers at any time. 4. You may use tampons if desired after 6 weeks. 5. Keep any areas repaired with stitches clean and dry. 6. If you are not nursing, wear a good fitting, supportive bra during the day and limit fluid intake for at least 1 week to prevent breast engorgement. 7. Call the office, , within the next week to make appointment for your 6 week checkup if it has not already been made. 8. Report any of the following occurrences to the doctor promptly: a. Heavy, excessive bleeding b. Chills, fever c. Burning or frequency of urination d. Pain or redness and breasts if nursing e. Increasing pain or swelling of vulva (stitches). In addition to the above instructions, the following additional should be followed: 1. No heavy lifting or straining (exercising) until after 6 week checkup. 2. Keep abdominal incision clean and dry: You may wear a dressing if more comfortable. 3. Make office appointment for 2 weeks after delivery date. Discharge Disposition: HOME SELF-CARE
[2024-02-19 10:12] VITALS: BP 105/73; PULSE 72; TEMP 98.3
== END 2024-02-19 12:31 | disposition home or self-care (01) | DRG 560 ==
LOC: FBPOP 00:47 → 4FBP 01:03
PROVIDERS: ADMIT Obstetrics & Gynecology; ATTEND Obstetrics & Gynecology
PROC: 10E0XZZ Delivery of Products of Conception, External Approach (ICD-10-PCS; principal; 2024-02-18)
PROC: 3E033VJ Introduction of Other Hormone into Peripheral Vein, Percutaneous Approach (ICD-10-PCS; 2024-02-18)
PROC: 4A1HXCZ Monitoring of Products of Conception, Cardiac Rate, External Approach (ICD-10-PCS; 2024-02-18)
PROC: 10907ZC Drainage of Amniotic Fluid, Therapeutic from Products of Conception, Via Natural or Artificial Opening (ICD-10-PCS; 2024-02-18)
DX: O43.113 Circumvallate placenta, third trimester (principal); O48.0 Post-term pregnancy; Z37.0 Single live birth; Z3A.40 40 weeks gestation of pregnancy; Z88.1 Allergy status to other antibiotic agents; Z88.0 Allergy status to penicillin
CPT/HCPCS: 59025; 85025; 86850; 86900; 86901; 99213